=== PATIENT | male | born 1950 | race Caucasian/White ===

== ENCOUNTER → 2018-01-29 18:29 | Outpatient (CLI) | payer MEDICAID, SELFPAY ==
[2018-01-29 19:32] LABS: Amphetamine Urine VISTA NEGATIVE (<1000 ng/mL); Barbiturate Urine VISTA NEGATIVE (< 200 ng/mL); Benzodiazepine Urine VISTA NEGATIVE (< 200 ng/mL); Cocaine Urine VISTA NEGATIVE (< 300 ng/mL); Ecstacy Urine VISTA NEGATIVE (< 500 ng/mL); Methadone Urine VISTA NEGATIVE (< 300 ng/mL); PCP Urine VISTA NEGATIVE (< 25 ng/mL); THC Urine VISTA POSITIVE (< 50 ng/mL); Vista UDS pH Range 5
== END ==
PROVIDERS: Visit Provider Anesthesiology
DX: F11.20 Opioid dependence, uncomplicated (principal)
CPT/HCPCS: 80307

== ENCOUNTER → 2018-06-18 16:05 | Outpatient (CLI) | payer MEDICARE, SELFPAY ==
[2018-06-18 17:47] LABS: Amphetamine Urine VISTA NEGATIVE (<1000 ng/mL); Barbiturate Urine VISTA NEGATIVE (< 200 ng/mL); Benzodiazepine Urine VISTA POSITIVE (< 200 ng/mL); Cocaine Urine VISTA NEGATIVE (< 300 ng/mL); Ecstacy Urine VISTA NEGATIVE (< 500 ng/mL); Methadone Urine VISTA NEGATIVE (< 300 ng/mL); PCP Urine VISTA NEGATIVE (< 25 ng/mL); THC Urine VISTA NEGATIVE (< 50 ng/mL); Vista UDS pH Range 6
== END ==
PROVIDERS: Referring Provider Anesthesiology; Visit Provider Anesthesiology
DX: F11.20 Opioid dependence, uncomplicated (principal)
CPT/HCPCS: 80307

== ENCOUNTER → 2018-09-24 10:16 | Outpatient (CLI) | payer MEDICARE, SELFPAY ==
--- NOTE | 2018-09-24 10:54 | RAD_ITS ---
STUDY: X-RAY - SACROILIAC JOINTS REASON FOR EXAM: Male, 68 years old. History of sacroiliitis. TECHNIQUE: 3 view(s) of the sacroiliac joints were obtained. COMPARISON: None. FINDINGS: The right sacroiliac joint is not visualized and may be fused. There is a springlike structure with wire overlying the right superolateral joint. The left sacral iliac joint is unremarkable. Normal visualized iliac bones. Normal visualized soft tissue structures. RAD/S-I Jts 3 or More Views IMPRESSION: Probable fusion of the right sacroiliac joint. Unremarkable left hip joint. Electronically Signed: Juan Reza MD at 10:43 EST Tel , Service support ,
--- NOTE | 2018-09-24 10:55 | RAD_ITS ---
STUDY: X-RAY - BILATERAL HIPS WITHOUT PELVIS REASON FOR EXAM: Male, 68 years old. Is degenerative sacroiliitis. TECHNIQUE: 2 views of the right hip, and 2 views of the left hip were obtained. COMPARISON: 05/22/2017. FINDINGS: Right Hip: Normal right femoral head, neck, intertrochanteric region and visualized proximal femur. Normal right acetabulum. There is mild articular joint space narrowing of the right hip. There again is a springlike structure overlying the right ilium unchanged since the prior exam. Left Hip: Normal left femoral head, neck, intertrochanteric region and visualized proximal femur. Normal left acetabulum. There is mild articular joint space narrowing of the left hip. Normal bilateral superior and inferior pubic rami , ischial tuberosities and pubic symphysis. There is no demonstrated fracture. RAD/Hips B/L min 2 views w/ Pelvis IMPRESSION: Mild narrowing of the hip joints. Normal x-ray examination of the left hip. Electronically Signed: Juan Reza MD at 10:45 EST Tel , Service support ,
--- OUTSIDE RECORDS SUMMARY | 2018-11-28 18:12 | XMS RPT_ITS ---
:1950 Author Organization [place] Care Team Providers Name Role Phone Perla Kelley Attending Unavailable Allie, Samesandra Referring Unavailable Stefan Bernal Primary Care Unavailable Perla Kelley Attending Unavailable Allie, Samesandra Referring Unavailable Allie, Perla Attending Unavailable Allie, Perla Referring Unavailable Benito Bauer Attending Unavailable Stefan Bernal Referring Unavailable Stefan Bernal Primary Care Unavailable Stefan Bernal Attending Unavailable Stefan Bernal Referring Unavailable Stefan Bernal Primary Care Unavailable Brent Garcia Attending Unavailable Stefan Bernal Referring Unavailable Stefan Bernal Primary Care Unavailable Stefan Bernal Attending Unavailable Stefan Bernal Referring Unavailable Stefan Bernal Primary Care Unavailable Zen Pollock Attending Unavailable Dolores, Stefan Referring Unavailable Dolores, Stefan Primary Care Unavailable Segundo Brantley Attending Unavailable Stefan Bernal Referring Unavailable Dolores, Stefan Primary Care Unavailable Dolores, Stefan Attending Unavailable Dolores, Stefan Referring Unavailable Dolores, Stefan Primary Care Unavailable Segundo Brantley Attending Unavailable Dolores, Stefan Referring Unavailable Darbysamatt, Stefan Primary Care Unavailable Segundo Brantley Attending Unavailable Dolores, Stefan Referring Unavailable Dolores, Stefan Primary Care Unavailable Karon, Dr. Raymond Attending Unavailable Karon, Dr. Raymond Referring Unavailable Moyestefany, Dr. 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 / [employer] System B18.2(ICD-10) Repository 06/19/2018 Admitting Coma scale, best Moyenuddin, Active [facility] motor response, Segundo System extension, EMR / Repository R40.2322(ICD-10) 06/19/2018 Unknown F11.20 - Opioid [facility] Active [place] dependence, Community uncomplicated / Hospital F11.20(ICD-10) Repository 06/18/2018 Admitting Hypothyroidism, Katsaros, Active [facility] unspecified / [facility] System E03.9(ICD-10) Repository 06/18/2018 Admitting Encntr for general Katsaros, Active [facility] adult medical exam [facility] System w/o abnormal Repository findings / Z00.00(ICD-10) 06/18/2018 Admitting Anemia, unspecified Katsaros, Active [facility] / D64.9(ICD-10) [facility] System Repository 06/18/2018 Admitting Encounter for Katsaros, Active [facility] screening for lipoid [facility] disorders / Repository Z13.220(ICD-10) 04/30/2018 Final diagnosis Chronic viral Karon, [facility] (discharge) hepatitis C / Dr. Raymond [facility] B18.2(ICD-10) Repository 03/21/2018 Admitting Essential (primary) Jeromin, Active [facility] Diagnosis hypertension / [facility] I10(ICD-10) Repository 03/21/2018 Admitting Irritable bowel Jeromin, Active [facility] Diagnosis syndrome without [facility] diarrhea / Repository K58.9(ICD-10) 03/21/2018 Admitting Other cervical disc Jeromin, Active [facility] Diagnosis degeneration, unsp [facility] cervical region / Repository M50.30(ICD-10) 03/21/2018 Admitting Gastro-esophageal Jeromin, Active [facility] Diagnosis reflux disease [facility] without esophagitis Repository / K21.9(ICD-10) 03/21/2018 Admitting Personal history of Jeromin, Active [facility] Diagnosis other infectious and [facility] parasitic diseases / Repository Z86.19(ICD-10) 03/21/2018 Admitting Allergy status to Jeromin, Active [facility] Diagnosis oth drug/meds/biol [facility] subst status / Repository Z88.8(ICD-10) 03/21/2018 Admitting Unspecified asthma, Jeromin, Active [facility] Diagnosis uncomplicated / [facility] J45.909(ICD-10) Repository 03/21/2018 Admitting Anxiety disorder, Jeromin, Active [facility] Diagnosis unspecified / [employer] System F41.9(ICD-10) Repository 03/21/2018 Admitting Personal history of Jeromin, Active [facility] Diagnosis nicotine dependence [facility] / Z87.891(ICD-10) Repository 03/21/2018 Admitting Episodic paroxysmal Jeromin, 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, 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 / Repository G44.039(ICD-10) 03/21/2018 Admitting Myalgia / Jeromin, Active [facility] Diagnosis M79.1(ICD-10) [facility] Repository 03/21/2018 Admitting Pain, unspecified / Jeromin, Active [facility] Diagnosis R52(ICD-10) [facility] Repository 03/21/2018 Admitting Hyperlipidemia, Jeromin, Active [facility] Diagnosis unspecified / [facility] E78.5(ICD-10) Repository 03/21/2018 Admitting Disorder of thyroid, Shahriaromin, Active [facility] unspecified / [facility] E07.9(ICD-10) Repository 03/21/2018 Admitting Prsnl history of dis Shahriarommima, [facility] of the bld/bld-form [facility] org/immun mechnsm / Repository Z86.2(ICD-10) 03/21/2018 Admitting Headache / Shahriaromin, Active [facility] R51(ICD-10) [facility] Repository 02/18/2018 Admitting Unspecified viral Katsaros, [facility] hepatitis C without Peter System hepatic coma / Repository B19.20(ICD-10) 02/18/2018 Admitting Chronic pain Brent Garcia [facility] syndrome / System G89.4(ICD-10) Repository 02/18/2018 Admitting Chest pain, Brent Garcia [facility] unspecified / System R07.9(ICD-10) Repository 02/18/2018 Admitting Generalized anxiety Brent Garcia [facility] disorder / System F41.1(ICD-10) Repository 02/18/2018 Admitting Allergic rhinitis, Brent Garcia [facility] unspecified / System J30.9(ICD-10) Repository 02/18/2018 Admitting Cataract extraction Brent Garcia [facility] status, unspecified System eye / Z98.49(ICD-10) Repository 10/13/2017 Admitting Nausea with Benito Bauer [facility] vomiting, System unspecified / Repository R11.2(ICD-10) 10/13/2017 Admitting Calculus of Benito Bauer [facility] Diagnosis gallbladder w/o System cholecystitis w/o Repository obstruction / K80.20(ICD-10) 10/13/2017 Admitting Spondylolisthesis, Benito Bauer [facility] Diagnosis lumbosacral region / System M43.17(ICD-10) Repository 10/13/2017 Admitting Other spondylosis, Benito Bauer [facility] Diagnosis lumbar region / System M47.896(ICD-10) Repository 10/13/2017 Admitting Other hyperlipidemia Benito Bauer [facility] / E78.4(ICD-10) System Repository 10/13/2017 Admitting Other chronic pain / Benito Bauer Active [facility] Diagnosis G89.29(ICD-10) System Repository PROCEDURES PROCEDURES No Procedure Records FoundRESULTS RESULTS S-I JTS 3 OR MORE Observed: 09/24/2018 Status: F Source: [place] VIEWS 10:55 AM [facility] REPOSITORY [facility] Imaging Services [address] [place] [address] S-I Jts 3 or More Views MR#: [id number] Acct: [id number] Name: SARINA DUNN Rep #: [id number] : 1950 M 68 From: Juan Reza MD PCP: Stefan Bernal Status: REG CLI Study: S-I Jts 3 or More Views Date of Exam: 09/24/18 Exam# [id number] Ordering Dr: Perla Kelley MD STUDY: X-RAY - SACROILIAC JOINTS REASON FOR EXAM: Male, 68 years old. History of sacroiliitis. TECHNIQUE: 3 view(s) of the sacroiliac joints were obtained. COMPARISON: None. FINDINGS: The right sacroiliac joint is not visualized and may be fused. There is a springlike structure with wire overlying the right superolateral joint. The left sacral iliac joint is unremarkable. Normal visualized iliac bones. Normal visualized soft tissue structures. RAD/S-I Jts 3 or More Views IMPRESSION: Probable fusion of the right sacroiliac joint. Unremarkable left hip joint. Electronically Signed: Juan Reza MD at 10:43 EST Tel , Service support , CC: Stefan Bernal; Perla Kelley M.D. Creche Attendant: Signed HIPS B/L MIN 2 Observed: 09/24/2018 Status: F Source: [facility] VIEWS W/ PELVIS 10:24 AM [facility] REPOSITORY [facility] Imaging Services [address] [place] [address] Hips B/L min 2 views w/ Pelvis MR#: [id number] Acct: [id number] Name: SARINA DUNN Rep #: [id number] : 1950 M 68 From: Juan Reza MD PCP: Stefan Bernal Status: REG CLI Study: Hips B/L min 2 views w/ Pelvis Date of Exam: 09/24/18 Exam# [id number] Ordering Dr: Perla Kelley MD STUDY: X-RAY - BILATERAL HIPS WITHOUT PELVIS REASON FOR EXAM: Male, 68 years old. Is degenerative sacroiliitis. TECHNIQUE: 2 views of the right hip, and 2 views of the left hip were obtained. COMPARISON: 05/22/2017. FINDINGS: Right Hip: Normal right femoral head, neck, intertrochanteric region and visualized proximal femur. Normal right acetabulum. There is mild articular joint space narrowing of the right hip. There again is a springlike structure overlying the right ilium unchanged since the prior exam. Left Hip: Normal left femoral head, neck, intertrochanteric region and visualized proximal femur. Normal left acetabulum. There is mild articular joint space narrowing of the left hip. Normal bilateral superior and inferior pubic rami , ischial tuberosities and pubic symphysis. There is no demonstrated fracture. RAD/Hips B/L min 2 views w/ Pelvis IMPRESSION: Mild narrowing of the hip joints. Normal x-ray examination of the left hip. Electronically Signed: Juan Reza MD at 10:45 EST Tel , Service support , CC: Peter Katcyn Kelley M.D. Creche Attendant: Signed COMP METABOLIC PANEL Collected: 08/16/2018 Status: F Source: [employer] 11:07 AM SYSTEM REPOSITORY TYPE CODE TESTS RESULT OUT OF RANGE REFERENCE UNITS LAB NA3 135-145 mmol/L Normal Sodium 140 Result Comment: NOTE: New Sodium Reference Range effective 2018 @ 10:00 LAB K3 3.5-5.1 mmol/L Normal Potassium 4.6 LAB CL3 98-107 mmol/L Normal Chloride 103 LAB CO23 22-30 mmol/L Normal Carbon Dioxide 30 LAB ANIN3 NA Anion Gap 6 LAB GLUC3 70-100 mg/dL Normal Glucose 87 LAB BUN3 7-20 mg/dL Normal Urea Nitrogen 16 LAB CRET3 0.52-1.25 mg/dL Normal Creatinine 1.13 LAB GF3BR >60 mL/min eGFR > 60.0 LAB GF3WR >60 mL/min eGFR OTHER > 60.0 Result Comment: Source- MDRD equation with creatinine calibration to IDMS(NKDEP) eGFR not recommended for drug dose adjustment LAB CA3 8.4-10.4 mg/dL Calcium Normal 9.5 LAB ALB3 3.5-5.0 g/dL Albumin, Serum Normal 4.2 LAB TP3 6.3-8.2 g/dL Total Protein Normal 6.9 LAB BILT3 0.2-1.3 mg/dL Normal Bilirubin,Total 0.6 LAB ALKP3 38-126 U/L Alkaline Normal Phosphatase 102 LAB ALT3 13-69 U/L ALT (SGPT) Normal 17 LAB AST3 15-46 U/L AST (SGOT) Normal 15 Performed By: #### CMP3 #### [facility] [address] [place] [address] #### HCVQ #### [facility] [address] [place] [address] HEPATITIS C RNA QUANT Collected: 08/16/2018 Status: F Source: [employer] 11:07 AM SYSTEM REPOSITORY TYPE CODE TESTS RESULT OUT OF RANGE REFERENCE UNITS LAB HCVQ1 <15 [IU]/mL < 15 Abnormal Hepatitis C RNA Quant LAB HCVQ2 <1.18 {Log_IU} < 1.18 Abnormal Hep C RNA Quant (log) LAB HCVQN NA Interpretation Note Result Comment: The linear detection limit for this assay is 15 HCV IU/ml. A result of <15 IU (<1.18 log IU) indicates that HCV was detected, but at a level below the linear cutoff. A result of None Detected means that no HCV RNA was detected. Performed By: #### CMP3 #### [facility] [address] [place] [address] #### HCVQ #### [facility] [address] [place] [address] URINE DRUG SCREEN Collected: 06/18/2018 Status: F Source: [facility]IL[facility] (VISTA) 4:45 PM [facility] REPOSITORY Order Comment: List of Drugs Taken or Suspected? . TYPE CODE TESTS RESULT OUT OF RANGE REFERENCE UNITS LAB L505.0075 TO BE Normal CONFIRMED Result Comment: CONFIRMATORY TESTING FOR ALL POSITIVE URINE DRUG SCREEN RESULTS WILL ONLY BE SENT OUT UPON PHYSICIAN ORDER. VISTA Urine Drug Screen methods provide only preliminary analytical test results. A more specific alternate chemical method must be used in order to obtain a confirmed analytical result. Gas chromatography/mass spectrometery (GC/MS) is the preferred confirmatory method. Clinical consideration and professional judgement should be applied to any drug of abuse test result, particularly when preliminary positive results are used. URINE TCA TESTING MUST BE ORDERED SEPARATELY. USE TEST MNEMONIC: [facility] LAB L505.5005 VISTA UDS PH 6 Normal LAB L505.5015 <1000 ng/mL AMPHETAMINES Normal NEGATIVE LAB L505.5025 < 200 ng/mL BARBITIURATES Normal NEGATIVE LAB L505.5035 < 200 High ng/mL BENZODIAZIPINE POSITIVE LAB L505.5045 < 300 ng/mL COCAINE Normal NEGATIVE LAB L505.5055 < 500 ng/mL ECSTACY Normal NEGATIVE LAB L505.5065 < 300 ng/mL METHADONE Normal NEGATIVE LAB L505.5075 < 300 High ng/mL OPIATES POSITIVE LAB L505.5085 < 25 ng/mL PCP Normal NEGATIVE LAB L505.5095 < 50 ng/mL THC Normal NEGATIVE Performed By: #### L505.5000 #### [facility] [address] [place], [address] MISCELLANEOUS LAB Collected: 06/18/2018 Status: F Source: [place] PROCEDURE 4:45 PM [facility] REPOSITORY Order Comment: Test(s) Ordered: [id number] TYPE CODE TESTS RESULT OUT OF RANGE REFERENCE UNITS LAB L801.1541 Normal [facility] [place] Result Comment: [id number] 6+OXYCODONE-BUND (ng/mL) DRUG RESULT SCREEN CUTOFF ____ Amphetamines,Urine Negative ng/mL 1000 Amphetamine test includes Amphetamine and Methamphetamine. Barbiturates Negative ng/mL 200 Benzodiazepines Negative ng/mL 200 Cannabinoid Positive ng/mL 20 Carboxy THC GC/MS Conf 14 ng/mL 10 Cocaine (Metab) Negative ng/mL 300 Opiates Positive ng/mL 300 Opiates test includes Codeine, Morphine, Hydromorphone, Hydrocodone. Codeine Positive Codeine Confirm >3000 ng/mL 300 Morphine Positive Morphine Confirm >3000 ng/mL 300 Hydromorphone Negative 300 Hydrocodone Negative 300 Oxycodone/Oxymorphone,Urine Negative ng/mL 300 Test includes Oxydodone and Oxymorphone. TESTING PERFORMED AT [facility]. ORIGINAL REPORT ON FILE IN LAB CONTAINS ADDITIONAL TEST SITE INFORMATION. Performed By: #### L801.1541 #### [facility] [place], [address] HEMOGRAM W/ AUTODIFF Collected: 06/18/2018 Status: F [facility] SYSTEM REPOSITORY TYPE CODE TESTS RESULT OUT OF REFERENCE UNITS RANGE LAB IWBC 3.6-10.7 10*3/uL WBC Normal 3.7 LAB RBC 4.40-5.90 10*6/uL Low RBC 3.82 LAB HGB 13.0-18.0 g/dL Low Hemoglobin 11.8 LAB HCT 40.0-52.0 % Low Hematocrit 34.8 LAB MCV 80.0-98.0 fL MCV Normal 91.2 LAB MCH 26.0-34.0 pg MCH Normal 31.0 LAB MCHC 32.0-36.0 % MCHC Normal 34.0 LAB RDW 11.5-14.5 % RDW Normal 12.8 LAB PLT 140-440 10*3/uL Platelet Normal 143 LAB MPV 7.4-10.4 fL MPV Normal 8.1 LAB GRAN% 40.0-80.0 % Granulocytes Normal 61.8 LAB LYMP% 20.0-40.0 % Lymphocytes Normal 28.5 LAB MONO% 2.0-10.0 % Monocytes Normal 9.3 LAB EOS% 1.0-6.0 % Low Eosinophils 0.0 LAB BAS% 0.0-2.0 % Basophils Normal 0.4 LAB ANC 1.8-7.0 10*3/uL Abs Normal Neutrophile Cnt 2.3 LAB ALC 1.0-4.3 10*3/uL Abs Lymph Cnt Normal 1.1 LAB AMC 0.0-0.8 10*3/uL Abs Monocyte Normal Cnt 0.3 LAB AEC 0.0-0.5 10*3/uL Abs Eosin Cnt Normal 0.0 LAB ABC 0.0-0.2 10*3/uL Abs Baso Cnt Normal 0.0 Performed By: #### HEMDF, CMP3, PT #### [facility] [address] [place] [address] #### HBSA, HBSAG, HIV4, HCVQ #### [facility] [address] [address] COMP METABOLIC PANEL Collected: 06/18/2018 Status: F Source: [employer] 1:33 PM SYSTEM REPOSITORY TYPE CODE TESTS RESULT OUT OF RANGE REFERENCE UNITS LAB NA3 137-145 mmol/L Sodium Normal 141 LAB K3 3.5-5.1 mmol/L Normal Potassium 4.4 LAB CL3 98-107 mmol/L Chloride Normal 105 LAB CO23 22-30 mmol/L Carbon Normal Dioxide 30 LAB ANIN3 NA Anion Gap 6 LAB GLUC3 70-100 mg/dL High Glucose 104 LAB BUN3 7-20 mg/dL Urea Normal Nitrogen 9 LAB CRET3 0.52-1.25 mg/dL Normal Creatinine 0.93 LAB GF3BR >60 mL/min eGFR > 60.0 LAB GF3WR >60 mL/min eGFR OTHER > 60.0 Result Comment: Source- MDRD equation with creatinine calibration to IDRI(NKDEP) eGFR not recommended for drug dose adjustment LAB CA3 8.4-10.4 mg/dL Calcium Normal 9.3 LAB ALB3 3.5-5.0 g/dL Albumin, Serum Normal 3.9 LAB TP3 6.3-8.2 g/dL Total Protein Normal 6.4 LAB BILT3 0.2-1.3 mg/dL Normal Bilirubin,Total 0.7 LAB ALKP3 38-126 U/L Alkaline Normal Phosphatase 68 LAB ALT3 13-69 U/L ALT (SGPT) Normal 33 LAB AST3 15-46 U/L AST (SGOT) Normal 29 Performed By: #### HEMDF, CMP3, PT #### [facility] [address] [place] [address] [place] [address] #### HBSA, HBSAG, HIV4, HCVQ #### [facility] [address] [place] [phone] PROTHROMBIN TIME Collected: 06/18/2018 Status: F Source: [employer] 1:33 PM SYSTEM REPOSITORY TYPE CODE TESTS RESULT OUT OF REFERENCE UNITS RANGE LAB PROTM 9.0-12.0 s Prothrombin Normal Time 10.9 Result Comment: . LAB INR 0.9-1.1 NA Normal INR 1.1 Result Comment: Recommended Anticoagulant Therapy: SEE BELOW ----- INR of 2.0 - 3.0 : - Prophylaxis of Venous Thrombosis (high-risk surgery) - Treatment of Venous Thrombosis - Treatment of Pulmonary Embolism (Includes tissue heart valves, Acute Myocardial Infarction to prevent systemic embolism, Valvular Heart Disease, and Atrial Fibrillation) ----- INR of 2.5 - 3.5 : - Mechanical Prosthetic Valves (high risk) - If oral anticoagulant therapy is used to prevent Myocardial Infarction Performed By: #### HEMDF, CMP3, PT #### [facility] [address] [place] [address] [place] [address] #### HBSA, HBSAG, HIV4, HCVQ #### [facility] [address] [place] [id number] HEP B SURFACE AB Collected: 06/18/2018 Status: F Source: [employer] 1:33 PM SYSTEM REPOSITORY TYPE CODE TESTS RESULT OUT OF REFERENCE UNITS RANGE LAB HBSA1 m[IU]/mL Hep B Surface < 8.0 Ab Result Comment: Interpretation: <8.0 Non-Reactive 8.0-11.9 Equivocal >= 12.0 Ab Detected Performed By: #### SUZANNA CMP3, PT #### [facility] [address] [place] [address] #### HBSA, HBSAG, HIV4, HCVQ #### [facility] [address] [place] [address] HEP B SURFACE AG Collected: 06/18/2018 Status: F Source: [employer] 1:[employer] PM SYSTEM REPOSITORY TYPE CODE TESTS RESULT OUT OF RANGE REFERENCE UNITS LAB HBSAG Not-Detected NA Normal Hep B Surface NOT DETECTED Ag Performed By: #### TISH BRISENO3, PT #### [facility] [address] [place] [address]. [place] [address] #### HBSA, HBSAG, HIV4, HCVQ #### [facility] [address] [place] [address] HIV 1,2 AB; P24 Collected: 06/18/2018 Status: F Source: [employer] 1:33 PM SYSTEM REPOSITORY TYPE CODE TESTS RESULT OUT OF REFERENCE UNITS RANGE LAB HIVA Nonreactive NA NONREACTIVE HIV 1,2 Ab; p24 Ag Result Comment: Results obtained using the FDA cleared 4th generation HIV test. This test detects antibodies to HIV1, HIV2, HIV Group O, and the presence of the HIV-1 p24 antigen. A Non-Reactive re- sult indicates the patient is negative for both HIV antibody and HIV p24 antigen. All reactive results will undergo reflex confirmation testing at an additional charge. Performed By: #### SUZANNA, TISH3, PT #### [facility] [address] [place] [address] [place] [address] #### HBSA, HBSAG, HIV4, HCVQ #### [facility] [address] [place] [address] HEPATITIS C RNA QUANT Collected: 06/18/2018 Status: F Source: [employer] 1:33 PM SYSTEM REPOSITORY TYPE CODE TESTS RESULT OUT OF RANGE REFERENCE UNITS LAB HCVQ1 <15 [IU]/mL [address] Abnormal Hepatitis C RNA Quant LAB HCVQ2 <1.18 {Log_IU} 4.89 Abnormal Hep C RNA Quant (log) LAB HCVQN NA Interpretation Note Result Comment: The linear detection limit for this assay is 15 HCV IU/ml. A result of <15 IU (<1.18 log IU) indicates that HCV was detected, but at a level below the linear cutoff. A result of None Detected means that no HCV RNA was detected. Performed By: #### HEMDF, CMP3, PT #### [facility] [address] [place] [address] #### HBSA, HBSAG, HIV4, HCVQ #### [facility] [address] [place] [address] HEP A ABS, TOTAL Collected: 06/18/2018 Status: F Source: [employer] 1:33 PM SYSTEM REPOSITORY TYPE CODE TESTS RESULT OUT OF RANGE REFERENCE UNITS LAB AHAVR Negative NA Unknown Hep A Positive Abs, Total Result Comment: The positive anti-HAV is consistent with recent or remote Hepatitis A infection or antibody response to HAV vaccination. False positive anti-HAV can occur. Performed by [employer], [address] [place] [id number] [email or web address], Mohit Durand MD - Lab. Director Performed By: #### AHAVO #### The performing lab is in the report. HEMOGRAM W/ AUTODIFF Collected: 06/18/2018 Status: F Source: [employer] 1:27 PM SYSTEM REPOSITORY TYPE CODE TESTS RESULT OUT OF REFERENCE UNITS RANGE LAB IWBC 3.6-10.7 10*3/uL WBC Normal 3.7 LAB RBC 4.40-5.90 10*6/uL Low RBC 3.78 LAB HGB 13.0-18.0 g/dL Low Hemoglobin 11.7 LAB HCT 40.0-52.0 % Low Hematocrit 34.5 LAB MCV 80.0-98.0 fL MCV Normal 91.3 LAB MCH 26.0-34.0 pg MCH Normal 31.0 LAB MCHC 32.0-36.0 % MCHC Normal 33.9 LAB RDW 11.5-14.5 % RDW Normal 12.9 LAB PLT 140-440 10*3/uL Platelet Normal 143 LAB MPV 7.4-10.4 fL MPV Normal 7.9 LAB GRAN% 40.0-80.0 % Granulocytes Normal 60.7 LAB LYMP% 20.0-40.0 % Lymphocytes Normal 29.3 LAB MONO% 2.0-10.0 % Monocytes Normal 9.5 LAB EOS% 1.0-6.0 % Low Eosinophils 0.0 LAB BAS% 0.0-2.0 % Basophils Normal 0.5 LAB ANC 1.8-7.0 10*3/uL Abs Normal Neutrophile Cnt 2.3 LAB ALC 1.0-4.3 10*3/uL Abs Lymph Cnt Normal 1.1 LAB AMC 0.0-0.8 10*3/uL Abs Monocyte Normal Cnt 0.4 LAB AEC 0.0-0.5 10*3/uL Abs Eosin Cnt Normal 0.0 LAB ABC 0.0-0.2 10*3/uL Abs Baso Cnt Normal 0.0 Performed By: #### HEMDF, CMP3, LIPD2, FEIBC, TSH5, PSA3S #### [facility] [address] [place] [address] COMP METABOLIC PANEL Collected: 06/18/2018 Status: F Source: [employer] 1:27 PM SYSTEM REPOSITORY TYPE CODE TESTS RESULT OUT OF RANGE REFERENCE UNITS LAB NA3 137-145 mmol/L Sodium Normal 142 LAB K3 3.5-5.1 mmol/L Normal Potassium 4.6 LAB CL3 98-107 mmol/L Chloride Normal 106 LAB CO23 22-30 mmol/L High Carbon Dioxide 31 LAB ANIN3 NA Anion Gap 6 LAB GLUC3 70-100 mg/dL High Glucose 105 LAB BUN3 7-20 mg/dL Urea Normal Nitrogen 9 LAB CRET3 0.52-1.25 mg/dL Normal Creatinine 0.96 LAB GF3BR >60 mL/min eGFR > 60.0 LAB GF3WR >60 mL/min eGFR OTHER > 60.0 Result Comment: Source- MDRD equation with creatinine calibration to IDMS(NKDEP) eGFR not recommended for drug dose adjustment LAB CA3 8.4-10.4 mg/dL Calcium Normal 9.4 LAB ALB3 3.5-5.0 g/dL Albumin, Serum Normal 4.0 LAB TP3 6.3-8.2 g/dL Total Protein Normal 6.5 LAB BILT3 0.2-1.3 mg/dL Normal Bilirubin,Total 0.6 LAB ALKP3 38-126 U/L Alkaline Normal Phosphatase 68 LAB ALT3 13-69 U/L ALT (SGPT) Normal 38 LAB AST3 15-46 U/L AST (SGOT) Normal 29 Performed By: #### HEMDF, CMP3, LIPD2, FEIBC, TSH5, PSA3S #### [facility] [address] [place] [address] LIPID PANEL Collected: 06/18/2018 Status: F Source: [employer] 1:27 PM SYSTEM REPOSITORY TYPE CODE TESTS RESULT OUT OF REFERENCE UNITS RANGE LAB 3CHOL < 200 mg/dL Cholesterol Normal 132 LAB 3TRIG <150 mg/dL Triglyceride Normal 66 LAB HDLC 40-60 mg/dL HDL Normal Cholesterol 47 LAB LDL4 <100 mg/dL Low Density Normal Lipoprotein 72 LAB CHLHD NA Chol/HDL 3 Result Comment: Ref Range: < 3 Low Risk for CHD 3-6 Mod Risk for CHD > 6 High Risk for CHD Performed By: #### HEMDF, CMP3, LIPD2, FEIBC, TSH5, PSA3S #### [facility] [address] [facility] [address] IRON AND TIBC Collected: 06/18/2018 Status: F Source: [employer] 1:27 PM SYSTEM REPOSITORY TYPE CODE TESTS RESULT OUT OF RANGE REFERENCE UNITS LAB IRON3 49-181 ug/dL Iron, Normal Total 71 LAB TIBC3 261-497 ug/dL Total Normal Iron Binding 307 Cap. LAB SAT3 15-50 % Normal Saturation 23 Performed By: #### HEMDF, CMP3, LIPD2, FEIBC, TSH5, PSA3S #### [facility] [address] [facility] [place] [address] THYROID STIM. Collected: 06/18/2018 Status: F Source: [employer] HORMONE 1:27 PM SYSTEM REPOSITORY TYPE CODE TESTS RESULT OUT OF REFERENCE UNITS RANGE LAB TSH5 0.465-4.680 u[IU]/mL Low Thyroid Stim. < 0.015 Hormone Performed By: #### HEMDF, CMP3, LIPD2, FEIBC, TSH5, PSA3S #### [facility] [address] [facility] [place] [address] PROSTATE SPECIFIC AG Collected: 06/18/2018 Status: F Source: [employer] SCREEN 1:27 PM SYSTEM REPOSITORY TYPE CODE TESTS RESULT OUT OF RANGE REFERENCE UNITS LAB 3PSAS < 4.000 ng/mL Normal Prostate 0.218 Specific Ag Screen Result Comment: Testing performed on the [employer] 5600 using an immunometric methodology. Results obtained by different methods should not be used interchangeably. Performed By: #### HEMDF, CMP3, LIPD2, FEIBC, TSH5, PSA3S #### [facility] [address] [place] [address] DRUGS OF ABUSE Collected: 06/18/2018 Status: F Source: [employer] 1:00 AM SYSTEM REPOSITORY TYPE CODE TESTS RESULT OUT OF REFERENCE UNITS RANGE LAB AMP3 NA Amphetamines, Ur Negative LAB BARB3 NA Barbiturates, Ur Negative LAB BENZ3 NA Benzodiazepines, Positive Ur LAB COC3 NA Cocaine, Ur Negative LAB METH3 NA Methadone, Ur Negative LAB OPI3 NA Opiates, Ur Positive LAB OXY3 NA Oxycodone/Oxymorph Negative ine,Ur LAB PCP3 NA Phencyclidine (PCP), Ur Negative Result Comment: The expected value for all of the drugs listed above is Negative. The following drugs or drug groups have been screened for by Immunoassay at the following thresholds: Amphetamine class (1000 ng/mL), Barbiturates (200 ng/mL), Benzodiazepines (200 ng/mL), Cocaine (300 ng/mL), Methadone (300 ng/mL), Opiates (300 ng/mL), Oxycodone (100 ng/mL), and PCP (25 ng/mL). NOTE: These results are for medical treatment only. Analysis performed using non-forensic procedures. POSITIVE results are NOT confirmed by a more specific alternative method unless requested. If confirmation is needed, request confirmation under separate order. Performed By: #### DRGA4 #### [facility] [address] [place] [address] #### ETOHU #### [facility] [address] [place] [address] ETHANOL,URINE Collected: 06/18/2018 Status: F Source: [employer] 1:00 AM SYSTEM REPOSITORY TYPE CODE TESTS RESULT OUT OF RANGE REFERENCE UNITS LAB ETOHU NA Normal NONE DETECTED Ethanol,Uri ne Result Comment: None Available Reporting Limit 0.01g/dL NOTE:These results are for medical treatment only. Analysis performed using non-forensic procedures. Performed By: #### DRGA4 #### [facility] [address] [place] [address] #### ETOHU #### [facility] [address] [place] [address] PROCEDURE (GASTROENTEROLOGY) Observed: 04/30/2018 Status: UNK Source: [employer] 1:12 PM HOSPITALS REPOSITORY Procedure 0945) Patient referred by Dr. Segundo Brantley for open-access Fibroscan study for diagnosis of chronic hepatitis C w/o coma. Patient identified x 2 and verified the following: age 18 or older - yes fasting > 3 hours - yes if female, not - n/a no implanted electronic devices (i.e. pacemaker, ICD) - yes Fibroscan study completed using M probe and 12 consecutive valid measurements obtained. Patient tolerated procedure well. Results: Median = 8.9 kPa IQR = 0.4 IQR/med = 4 % CAP = 212 dB/m Patient advised that Dr. Anders will read the study and send a report to the referring provider. Perri Cabrera RN- Diagnoses/Problems Chronic hepatitis C without hepatic coma (070.54) (B18.2) Attending Note Attestation: I reviewed the attendee's documentation and I agree with the attendee's medical decision making and plans as documented in the attendee's note with the exception/addition of the following: Comments/Additional Findings: HEPATOLOGY ATTENDING NOTE I personally reviewed and interpreted the FibroSCAN test. It revealed a median liver stiffness of 8.9 kPa with an IQR of 4% and CAP 212. This is consistent with stage 2 disease. We will send the results to the PCP and the referring MD. CECIL Anders. Signatures Electronically signed by : Chao Anders MD; Apr 30 2018 1:12PM EST (Author) URINALYSIS,MACRO Collected: 03/21/2018 Status: F Source: [employer] 7:43 PM SYSTEM REPOSITORY TYPE CODE TESTS RESULT OUT OF REFERENCE UNITS RANGE LAB APPUR Clear NA Appearance CLEAR LAB COLUR Lt. Yellow NA Color YELLOW LAB USG 1.005-1.030 NA Specific Normal Robinson,Urine 1.025 LAB UPH 5.0-8.0 NA pH,Urine Normal 6.0 LAB ULUK Negative NA Leukocytes NEGATIVE LAB UNIT Negative NA Nitrites NEGATIVE LAB UPRO Negative mg/dL Total Protein,Urine NEGATIVE LAB UGLU Negative mg/dL Glucose,Urine NEGATIVE LAB UKET Negative mg/dL Ketone,Urine 1 + LAB UURO 0-1 mg/dL Urobilinogen 0.2 LAB UBIL Negative NA Bilirubin,Ur NEGATIVE LAB UBLD Negative {RBC}/uL Occult Blood,Ur NEGATIVE Performed By: #### UAMAC #### [facility] [address] [place] [address] CT HEAD OR BRAIN W/O Observed: 03/21/2018 Status: F Source: [employer] CONTRAST 5:09 PM SYSTEM REPOSITORY Patient Name: SARINA DUNN CT Exam Date/Time 03/21/2018 16:55:[address] Head or Brain w/o Contrast Ordering Physician MD POLLOCK GERALD Accession Number [id number] CPT4 Codes 28073 () Reason For Exam headache Report CLINICAL INFORMATION: Headaches. Nausea and vomiting. 3 mm axial cuts through the head are obtained without IV contrast. The examination is compared to a previous study dated 05/17/2017. FINDINGS: The ventricles are within normal limits in respect to their size and configuration. There is no evidence of mass or mass-effect. There are no abnormal intra- or extra-axial fluid collections. No hemorrhage is identified. There is no CT evidence of an acute infarct. Bone windows demonstrate no evidence of fracture. A retention cyst or polyp is redemonstrated in the left frontal sinus. This is unchanged. The mastoid air cells are clear.. IMPRESSION: 1. No CT evidence of an acute intracranial process. Report Dictated on Final Dictating Physician: MD IYER JEFFREY Signed Date and Time: 03/21/2018 5:10 pm Signed by: MD IYER JEFFREY Transcribed Date and Time: 03/21/2018 5:11 HEMOGRAM W/ AUTODIFF Collected: 03/21/2018 Status: F Source: [employer] 4:18 PM SYSTEM REPOSITORY TYPE CODE TESTS RESULT OUT OF REFERENCE UNITS RANGE LAB IWBC 3.6-10.7 10*3/uL WBC Normal 5.9 LAB RBC 4.40-5.90 10*6/uL Low RBC 3.99 LAB HGB 13.0-18.0 g/dL Low Hemoglobin 12.6 LAB HCT 40.0-52.0 % Low Hematocrit 36.2 LAB MCV 80.0-98.0 fL MCV Normal 90.6 LAB MCH 26.0-34.0 pg MCH Normal 31.4 LAB MCHC 32.0-36.0 % MCHC Normal 34.7 LAB RDW 11.5-14.5 % RDW Normal 12.2 LAB PLT 140-440 10*3/uL Platelet Normal 172 LAB MPV 7.4-10.4 fL MPV Normal 8.5 LAB GRAN% 40.0-80.0 % Granulocytes High 81.3 LAB LYMP% 20.0-40.0 % Low Lymphocytes 12.5 LAB MONO% 2.0-10.0 % Monocytes Normal 4.3 LAB EOS% 1.0-6.0 % Low Eosinophils 0.1 LAB BAS% 0.0-2.0 % Basophils Normal 1.8 LAB ANC 1.8-7.0 10*3/uL Abs Normal Neutrophile Cnt 4.8 LAB ALC 1.0-4.3 10*3/uL Low Abs Lymph Cnt 0.7 LAB AMC 0.0-0.8 10*3/uL Abs Monocyte Normal Cnt 0.3 LAB AEC 0.0-0.5 10*3/uL Abs Eosin Cnt Normal 0.0 LAB ABC 0.0-0.2 10*3/uL Abs Baso Cnt Normal 0.1 Performed By: #### HEMDF, CMP3, ETOH4, MG3 #### [facility] [address] [place] [address] COMP METABOLIC PANEL Collected: 03/21/2018 Status: F Source: [employer] 4:18 PM SYSTEM REPOSITORY TYPE CODE TESTS RESULT OUT OF RANGE REFERENCE UNITS LAB NA3 137-145 mmol/L Sodium Normal 139 LAB K3 3.5-5.1 mmol/L Normal Potassium 4.2 LAB CL3 98-107 mmol/L Chloride Normal 105 LAB CO23 22-30 mmol/L Low Carbon Dioxide 21 LAB ANIN3 NA Anion Gap 13 LAB GLUC3 70-100 mg/dL High Glucose 103 LAB BUN3 7-20 mg/dL Urea Normal Nitrogen 15 LAB CRET3 0.52-1.25 mg/dL Normal Creatinine 0.64 LAB GF3BR >60 mL/min eGFR > 60.0 LAB GF3WR >60 mL/min eGFR OTHER > 60.0 Result Comment: Source- MDRD equation with creatinine calibration to IDMS(NKDEP) eGFR not recommended for drug dose adjustment LAB CA3 8.4-10.4 mg/dL Calcium Normal 9.2 LAB ALB3 3.5-5.0 g/dL Albumin, Serum Normal 4.2 LAB TP3 6.3-8.2 g/dL Total Protein Normal 7.5 LAB BILT3 0.2-1.3 mg/dL Normal Bilirubin,Total 0.9 LAB ALKP3 38-126 U/L Alkaline Normal Phosphatase 77 LAB ALT3 13-69 U/L ALT (SGPT) Normal 45 LAB AST3 15-46 U/L AST (SGOT) Normal 44 Performed By: #### HEMDF, CMP3, ETOH4, MG3 #### [facility] [address] [place] [address] ETHANOL SERUM/PLASMA Collected: 03/21/2018 Status: F Source: [employer] 4:18 PM SYSTEM REPOSITORY TYPE CODE TESTS RESULT OUT OF RANGE REFERENCE UNITS LAB ETOH3 0.000-0.010 g/dL Normal < 0.010 Ethanol-Seru m/Plasma Result Comment: NOTE: This result is for medical treatment only. Analysis performed using non-forensic procedures. Performed By: #### HEMDF, CMP3, ETOH4, MG3 #### [facility] [address] [place] [address] MAGNESIUM Collected: 03/21/2018 Status: F Source: [employer] 4:18 PM SYSTEM REPOSITORY TYPE CODE TESTS RESULT OUT OF RANGE REFERENCE UNITS LAB MG3 1.6-2.3 mg/dL Normal Magnesium 1.9 Performed By: #### HEMDF, CMP3, ETOH4, MG3 #### [facility] [address] [place] [address] HEPATITIS C GENOTYPE Collected: 02/18/2018 Status: F Source: [employer] 11:50 AM SYSTEM REPOSITORY Order Comment: ORDER WAS CANCELLED 02/18/18 17:56, OUTSIDE TUBE HAS EDTA/SERUM ?. TYPE CODE TESTS RESULT OUT OF REFERENCE UNITS RANGE LAB HPCGR NA Hepatitis C 1a or 1b Genotype Result Comment: Cannot be further subtyped into Type 1a or Type 1b due to high conservation of the 5' untranslated region of the HCV genome. In addition, Type 6 virus may be misclassified as Type 1 in some cases. The Hepatitis C Virus High-Resolution Genotype by Sequencing test ([facility] test code [id number]) provides a higher level of subtype resolution. INTERPRETIVE INFORMATION: Hepatitis C Genotyping Hepatitis C Viral RNA is tested using reverse mixed crop farmer polymerase chain reaction (RT-PCR) to amplify a specific portion of the 5' untranslated region (5' UTR) of the viral genome. The amplified nucleic acid is sequenced bi-directionally using dye-terminator chemistry ([employer]). Sequencing data is compared to a database of characterized sequences. Isolates of hepatitis C virus are grouped into six major genotypes (1-6). These genotypes are subtyped according to sequence characteristics. Due to high conservation of the 5' un-translated region of the HCV genome, this test has limitations in differentiating subtype 1a from 1b. Therefore, these subtypes will be reported as 1a or 1b. In rare instances, Type 6 virus may be misclassified as Type 1. Test developed and characteristics determined by [employer]. See Compliance Statement B: [facility]/ Performed by [facility], [address] [place] [id number] [email or web address], Mohit Durand MD - Lab. Director Performed By: #### HPCGO #### The performing lab is in the report. CR CHEST PORTABLE Observed: 02/18/2018 Status: F Source: [employer] 10:33 AM SYSTEM REPOSITORY Patient Name: SARINA DUNN Diagnostic Radiology Exam Date/Time 02/18/2018 10:30:38 EDT Exam CR Chest Portable Ordering Physician BRENT GARCIA Accession Number [id number] CPT4 Codes 62203 () Reason For Exam chest pain Report CHEST (Frontal View) History: Chest pain Comparison: 10/13/2017 Findings: Frontal chest view shows interstitial prominence of both lungs without acute infiltrate or congestion. The heart is normal in size. There is no mediastinal widening or pleural effusion. The right diaphragm is mildly elevated. There are multiple tiny metallic foreign bodies projected at the left upper chest/scapula, not significantly changed from last exam. IMPRESSION: Metallic foreign bodies. Chronic changes. No acute pulmonary process. Report Dictated on Final Dictating Physician: MD ALCANTARA AHMAD Signed Date and Time: 02/18/2018 10:35 am Signed by: MD ALCANTARA AHMAD Transcribed Date and Time: 02/18/2018 10:36 HEMOGRAM W/ AUTODIFF Collected: 02/18/2018 Status: F Source: [employer] 9:34 AM SYSTEM REPOSITORY TYPE CODE TESTS RESULT OUT OF REFERENCE UNITS RANGE LAB IWBC 3.6-10.7 10*3/uL WBC Normal 6.1 LAB RBC 4.40-5.90 10*6/uL Low RBC 4.13 LAB HGB 13.0-18.0 g/dL Low Hemoglobin 12.8 LAB HCT 40.0-52.0 % Low Hematocrit 37.7 LAB MCV 80.0-98.0 fL MCV Normal 91.3 LAB MCH 26.0-34.0 pg MCH Normal 31.1 LAB MCHC 32.0-36.0 % MCHC Normal 34.0 LAB RDW 11.5-14.5 % RDW Normal 13.4 LAB PLT 140-440 10*3/uL Platelet Normal 159 LAB MPV 7.4-10.4 fL MPV Normal 8.0 LAB GRAN% 40.0-80.0 % Granulocytes Normal 66.2 LAB LYMP% 20.0-40.0 % Lymphocytes Normal 22.2 LAB MONO% 2.0-10.0 % Monocytes Normal 9.1 LAB EOS% 1.0-6.0 % Low Eosinophils 0.0 LAB BAS% 0.0-2.0 % Basophils High 2.5 LAB ANC 1.8-7.0 10*3/uL Abs Normal Neutrophile Cnt 4.1 LAB ALC 1.0-4.3 10*3/uL Abs Lymph Cnt Normal 1.4 LAB AMC 0.0-0.8 10*3/uL Abs Monocyte Normal Cnt 0.6 LAB AEC 0.0-0.5 10*3/uL Abs Eosin Cnt Normal 0.0 LAB ABC 0.0-0.2 10*3/uL Abs Baso Cnt Normal 0.2 Performed By: #### HEMDF, CMP3, LIPA3, TROPN #### [facility] [address] [place] [address] #### NH33 #### [facility] [address] [place] [address] COMP METABOLIC PANEL Collected: 02/18/2018 Status: F Source: [employer] 9:34 AM SYSTEM REPOSITORY TYPE CODE TESTS RESULT OUT OF RANGE REFERENCE UNITS LAB NA3 137-145 mmol/L Low Sodium 134 LAB K3 3.5-5.1 mmol/L Normal Potassium 3.7 LAB CL3 98-107 mmol/L Chloride Normal 101 LAB CO23 22-30 mmol/L Carbon Normal Dioxide 27 LAB ANIN3 NA Anion Gap 6 LAB GLUC3 70-100 mg/dL High Glucose 107 LAB BUN3 7-20 mg/dL Urea Normal Nitrogen 20 LAB CRET3 0.52-1.25 mg/dL Normal Creatinine 1.03 LAB GF3BR >60 mL/min eGFR > 60.0 LAB GF3WR >60 mL/min eGFR OTHER > 60.0 Result Comment: Source- MDRD equation with creatinine calibration to IDMS(NKDEP) eGFR not recommended for drug dose adjustment LAB CA3 8.4-10.2 mg/dL Calcium Normal 9.3 LAB ALB3 3.5-5.0 g/dL Albumin, Serum Normal 4.3 LAB TP3 6.3-8.2 g/dL Total Protein Normal 7.4 LAB BILT3 0.2-1.3 mg/dL Normal Bilirubin,Total 0.8 LAB ALKP3 38-126 U/L Alkaline Normal Phosphatase 73 LAB ALT3 13-69 U/L High ALT (SGPT) 75 LAB AST3 15-46 U/L High AST (SGOT) 49 Performed By: #### HEMDF, CMP3, LIPA3, TROPN #### [facility] [address] [place] [address] #### NH33 #### [facility] [address] [place] [address] LIPASE Collected: 02/18/2018 Status: F Source: [employer] 9:34 AM SYSTEM REPOSITORY TYPE CODE TESTS RESULT OUT OF RANGE REFERENCE UNITS LAB LIPA3 23-300 [IU]/L Normal Lipase 83 Performed By: #### HEMDF, CMP3, LIPA3, TROPN #### [facility] [address] [place] [address] #### NH33 #### [facility] [address] [place] [address] TROPONIN I Collected: 02/18/2018 Status: F Source: [employer] 9:34 AM SYSTEM REPOSITORY TYPE CODE TESTS RESULT OUT OF RANGE REFERENCE UNITS LAB TROP4 0.000-0.034 ng/mL Normal Troponin I < 0.012 Result Comment: 0.046 - 0.400 = Indeterminate > 0.400 = Consider Myocardial Injury Performed By: #### HEMDF, CMP3, LIPA3, TROPN #### [facility] [address] [place] [address] #### NH33 #### [facility] [address] [place] [address] AMMONIA Collected: 02/18/2018 Status: F Source: [employer] 9:34 AM SYSTEM REPOSITORY TYPE CODE TESTS RESULT OUT OF RANGE REFERENCE UNITS LAB NH33 9-30 umol/L Normal Ammonia < 9 Performed By: #### HEMDF, CMP3, LIPA3, TROPN #### [facility] [address] [place] [address] #### NH33 #### [facility] [address] [place] [address] URINE DRUG SCREEN Collected: 01/29/2018 Status: F Source: [place] (VISTA) 6:00 PM [facility] REPOSITORY Order Comment: List of Drugs Taken or Suspected? . TYPE CODE TESTS RESULT OUT OF RANGE REFERENCE UNITS LAB L505.0075 TO BE Normal CONFIRMED Result Comment: CONFIRMATORY TESTING FOR ALL POSITIVE URINE DRUG SCREEN RESULTS WILL ONLY BE SENT OUT UPON PHYSICIAN ORDER. [employer] Urine Drug Screen methods provide only preliminary analytical test results. A more specific alternate chemical method must be used in order to obtain a confirmed analytical result. Gas chromatography/mass spectrometery (GC/MS) is the preferred confirmatory method. Clinical consideration and professional judgement should be applied to any drug of abuse test result, particularly when preliminary positive results are used. URINE TCA TESTING MUST BE ORDERED SEPARATELY. USE TEST MNEMONIC: [facility] LAB L505.5005 VISTA UDS PH 5 Normal LAB L505.5015 <1000 ng/mL AMPHETAMINES Normal NEGATIVE LAB L505.5025 < 200 ng/mL BARBITIURATES Normal NEGATIVE LAB L505.5035 < 200 ng/mL BENZODIAZIPINE Normal NEGATIVE LAB L505.5045 < 300 ng/mL COCAINE Normal NEGATIVE LAB L505.5055 < 500 ng/mL ECSTACY Normal NEGATIVE LAB L505.5065 < 300 ng/mL METHADONE Normal NEGATIVE LAB L505.5075 < 300 High ng/mL OPIATES POSITIVE LAB L505.5085 < 25 ng/mL PCP Normal NEGATIVE LAB L505.5095 < 50 High ng/mL THC POSITIVE Performed By: #### L505.5000 #### [facility] [address] [place], [address] MISCELLANEOUS LAB Collected: 01/29/2018 Status: F Source: [place] PROCEDURE 6:00 PM [facility] REPOSITORY Order Comment: Test(s) Ordered: [id number] drug screen TYPE CODE TESTS RESULT OUT OF RANGE REFERENCE UNITS LAB L801.1541 Normal [facility] [place] Result Comment: [id number] 6+OXYCODONE-BUND (ng/mL) DRUG RESULT SCREEN CUTOFF ____ Amphetamines,Urine Negative ng/mL 1000 Amphetamine test includes Amphetamine and Methamphetamine. Barbiturates Negative ng/mL 200 Benzodiazepines Negative ng/mL 200 Cannabinoid Negative ng/mL 20 Cocaine (Metab) Negative ng/mL 300 Opiates Positive ng/mL 300 Opiates test includes Codeine, Morphine, Hydromorphone, Hydrocodone. Please Note: Confirmation performed by Mass Spectrometry Codeine Positive Codeine Confirm >3000 ng/mL 300 Morphine Positive Morphine Confirm >3000 ng/mL 300 Hydromorphone Positive Hydromorphone Confirm 1001 ng/mL 300 Hydrocodone Positive Hydrocodone Confirm >300 ng/mL 300 Oxycodone/Oxymorphone,Urine Negative ng/mL 300 Test includes Oxydodone and Oxymorphone. TESTING PERFORMED AT [facility]. ORIGINAL REPORT ON FILE IN LAB CONTAINS ADDITIONAL TEST SITE INFORMATION. Performed By: #### L801.1541 #### [facility] [place], [address] AFP TUMOR MARKER Collected: 01/26/2018 Status: F Source: [employer] 2:04 PM SYSTEM REPOSITORY TYPE CODE TESTS RESULT OUT OF REFERENCE UNITS RANGE LAB AFPT 0-9 ng/mL AFP Tumor 2 Marker Result Comment: INTERPRETIVE INFORMATION: Alpha Fetoprotein Tumor Marker The [employer] [place] Access DxI AFP method is used. Results obtained with different assay methods or kits cannot be used interchangeably. AFP is a valuable aid in the management of nonseminomatous testicular cancer patients when used in conjunction with information available from the clinical evaluation and other diagnostic procedures. Increased AFP concentrations have also been observed in ataxia telangiectasia, hereditary tyrosinemia, primary hepatocellular carcinoma, teratocarcinoma, gastrointestinal tract cancers with and without liver metastases, and in benign hepatic conditions such as acute viral hepatitis, chronic active hepatitis, and cirrhosis. The result cannot be interpreted as absolute evidence of the presence or absence of malignant disease. The result is not interpretable as a tumor marker in females. Access complete set of age- and/or gender-specific reference intervals for this test in the [facility] Test Directory ([facility]). Performed by [facility], [address] [place] [id number] www.[email or web address], Mohit Durand MD - Lab. Director Performed By: #### HEMDF, FEIBC, TSH4, CMP3, B12, FOLT3 #### [facility] [address] [place] [address] #### CEA2 #### [facility] [address] [place] [address] #### HCVQ #### [facility] [address] [place] [address] #### AFTM #### The performing lab is in the report. HEMOGRAM W/ AUTODIFF Collected: 01/26/2018 Status: F Source: [employer] 2:03 PM SYSTEM REPOSITORY TYPE CODE TESTS RESULT OUT OF REFERENCE UNITS RANGE LAB IWBC 3.6-10.7 10*3/uL WBC Normal 7.9 LAB RBC 4.40-5.90 10*6/uL Low RBC 4.02 LAB HGB 13.0-18.0 g/dL Low Hemoglobin 12.3 LAB HCT 40.0-52.0 % Low Hematocrit 36.9 LAB MCV 80.0-98.0 fL MCV Normal 91.9 LAB MCH 26.0-34.0 pg MCH Normal 30.7 LAB MCHC 32.0-36.0 % MCHC Normal 33.3 LAB RDW 11.5-14.5 % RDW Normal 13.3 LAB PLT 140-440 10*3/uL Platelet Normal 159 LAB MPV 7.4-10.4 fL MPV Normal 8.1 LAB GRAN% 40.0-80.0 % Granulocytes Normal 77.5 LAB LYMP% 20.0-40.0 % Low Lymphocytes 15.2 LAB MONO% 2.0-10.0 % Monocytes Normal 6.3 LAB EOS% 1.0-6.0 % Low Eosinophils 0.0 LAB BAS% 0.0-2.0 % Basophils Normal 1.0 LAB ANC 1.8-7.0 10*3/uL Abs Normal Neutrophile Cnt 6.1 LAB ALC 1.0-4.3 10*3/uL Abs Lymph Cnt Normal 1.2 LAB AMC 0.0-0.8 10*3/uL Abs Monocyte Normal Cnt 0.5 LAB AEC 0.0-0.5 10*3/uL Abs Eosin Cnt Normal 0.0 LAB ABC 0.0-0.2 10*3/uL Abs Baso Cnt Normal 0.1 Performed By: #### HEMDF, FEIBC, TSH4, CMP3, B12, FOLT3 #### [facility] [address] [place] [address] #### CEA2 #### [facility] [address] [place] [address] #### HCVQ #### [facility] [address] [place] [address] #### AFTM #### The performing lab is in the report. IRON AND TIBC Collected: 01/26/2018 Status: F Source: [employer] 2:03 PM SYSTEM REPOSITORY TYPE CODE TESTS RESULT OUT OF RANGE REFERENCE UNITS LAB IRON3 65-175 ug/dL Low Iron, Total 59 LAB TIBC3 250-450 ug/dL Total Normal Iron Binding 325 Cap. LAB SAT3 15-50 % Normal Saturation 18 Performed By: #### HEMDF, FEIBC, TSH4, CMP3, B12, FOLT3 #### [facility] [address] [place] [address] #### CEA2 #### [address] [address] #### HCVQ #### [address] [address] #### AFTM #### The performing lab is in the report. THYROID STIM. Collected: 01/26/2018 Status: F Source: [employer] HORMONE 2:03 PM SYSTEM REPOSITORY TYPE CODE TESTS RESULT OUT OF RANGE REFERENCE UNITS LAB TSH4 0.358-3.740 uU/mL Normal Thyroid Stim. 0.555 Hormone Performed By: #### HEMDF, FEIBC, TSH4, CMP3, B12, FOLT3 #### [facility] [employer] [address] [address] #### CEA2 #### [facility] [address] [address] #### HCVQ #### [facility] [address] [address] #### AFTM #### The performing lab is in the report. COMP METABOLIC PANEL Collected: 01/26/2018 Status: F Source: [employer] 2:03 PM SYSTEM REPOSITORY TYPE CODE TESTS RESULT OUT OF RANGE REFERENCE UNITS LAB NA3 135-145 mmol/L Sodium Normal 140 LAB K3 3.5-5.1 mmol/L Normal Potassium 4.4 LAB CL3 98-109 mmol/L Chloride Normal 104 LAB CO23 21-32 mmol/L Carbon Normal Dioxide 28 LAB ANIN3 NA Anion Gap 8 LAB GLUC3 70-100 mg/dL High Glucose 109 LAB BUN3 7-25 mg/dL Urea Normal Nitrogen 18 LAB CRET3 0.55-1.40 mg/dL Normal Creatinine 0.94 LAB GF3BR >60 mL/min eGFR > 60.0 LAB GF3WR >60 mL/min eGFR OTHER > 60.0 Result Comment: Source- MDRD equation with creatinine calibration to IDMS(NKDEP) eGFR not recommended for drug dose adjustment LAB CA3 8.2-10.1 mg/dL Calcium Normal 8.4 LAB ALB3 3.4-5.0 g/dL Albumin, Serum Normal 3.7 LAB TP3 6.4-8.2 g/dL Total Protein Normal 6.8 LAB BILT3 0.2-1.0 mg/dL Normal Bilirubin,Total 0.5 LAB ALKP3 45-117 U/L Alkaline Normal Phosphatase 106 LAB ALT3 12-78 U/L ALT (SGPT) Normal 37 LAB AST3 15-37 U/L AST (SGOT) Normal 27 Performed By: #### HEMDF, FEIBC, TSH4, CMP3, B12, FOLT3 #### [facility] [address] [address] #### CEA2 #### [facility] [address] [address] #### HCVQ #### [facility] [address] [address] #### AFTM #### The performing lab is in the report. VITAMIN B12 Collected: 01/26/2018 Status: F Source: [employer] 2:03 PM SYSTEM REPOSITORY TYPE CODE TESTS RESULT OUT OF RANGE REFERENCE UNITS LAB B12 193-986 pg/mL Normal Vitamin B12 387 Performed By: #### HEMDF, FEIBC, TSH4, CMP3, B12, FOLT3 #### [facility] [address] [address] #### CEA2 #### [facility] [address] [address] #### HCVQ #### [facility] [address] [address] #### AFTM #### The performing lab is in the report. FOLATE Collected: 01/26/2018 Status: F Source: [employer] 2:03 PM SYSTEM REPOSITORY TYPE CODE TESTS RESULT OUT OF RANGE REFERENCE UNITS LAB 3FOLT 3.1-17.5 ng/mL Normal Folate 14.2 Performed By: #### HEMDF, FEIBC, TSH4, CMP3, B12, FOLT3 #### [facility] [address] [place] [address] #### CEA2 #### [address] [place] [address] #### HCVQ #### [address] [address] #### AFTM #### The performing lab is in the report. CARCINOEMBRYONIC AG Collected: 01/26/2018 Status: F Source: [facility] [employer] 2:03 PM SYSTEM REPOSITORY TYPE CODE TESTS RESULT OUT OF REFERENCE UNITS RANGE LAB 2CEA 0.0-3.0 ng/mL Carcinoembryonic Ag. Normal 1.0 Performed By: #### HEMDF, FEIBC, TSH4, CMP3, B12, FOLT3 #### [facility] [address] #### CEA2 #### [address] [place] [address] #### HCVQ #### [address] [address] #### AFTM #### The performing lab is in the report. HEPATITIS C RNA QUANT Collected: 01/26/2018 Status: F Source: [facility] [employer] 2:00 PM SYSTEM REPOSITORY TYPE CODE TESTS RESULT OUT OF RANGE REFERENCE UNITS LAB HCVQ1 <15 [IU]/mL [address] Abnormal Hepatitis C RNA Quant LAB HCVQ2 <1.18 {Log_IU} 4.90 Abnormal Hep C RNA Quant (log) LAB HCVQN NA Interpretation Note Result Comment: The linear detection limit for this assay is 15 HCV IU/ml. A result of <15 IU (<1.18 log IU) indicates that HCV was detected, but at a level below the linear cutoff. A result of None Detected means that no HCV RNA was detected. Performed By: #### HEMDF, FEIBC, TSH4, CMP3, B12, FOLT3 #### [facility] [place] [address] #### CEA2 #### [address] [place] [address] #### HCVQ #### [facility] [address] [place] [address] #### AFTM #### The performing lab is in the report. CT ABDOMEN/PELVIS W/O Observed: 10/14/2017 Status: F Source: [employer] CONTRAST 1:56 AM SYSTEM REPOSITORY Patient Name: SARINA DUNN CT Exam Date/Time 10/14/2017 00:10:[address] Abdomen/Pelvis (No PO, No IV) Ordering Physician MD MARK, BENITO Accession Number [id number] CPT4 Codes 24565 (CT Abdomen/Pelvis (No PO, No IV)) Reason For Exam n/v/mild abd cramps hx [facility] Report CT ABDOMEN AND PELVIS WITHOUT IV CONTRAST CLINICAL INDICATION: Nausea, vomiting and abdominal pain. History of hepatitis C. TECHNIQUE: Multidetector axial CT images through the abdomen and pelvis were obtained without IV contrast. No oral contrast was administered. Images were reconstructed in sagittal and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
== END ==
PROVIDERS: Family Provider Internal Medicine; PCP Internal Medicine; Referring Provider Anesthesiology; Visit Provider Anesthesiology
DX: M25.50 Pain in unspecified joint (principal); M46.1 Sacroiliitis, not elsewhere classified
CPT/HCPCS: 72202; 73521

== ENCOUNTER → 2019-03-04 13:25 | Outpatient (CLI) | payer MEDICARE, SELFPAY ==
[2019-03-04 15:02] LABS: Amphetamine Urine VISTA NEGATIVE (<1000 ng/mL); Barbiturate Urine VISTA NEGATIVE (< 200 ng/mL); Benzodiazepine Urine VISTA POSITIVE (< 200 ng/mL); Cocaine Urine VISTA NEGATIVE (< 300 ng/mL); Ecstacy Urine VISTA NEGATIVE (< 500 ng/mL); Methadone Urine VISTA NEGATIVE (< 300 ng/mL); PCP Urine VISTA NEGATIVE (< 25 ng/mL); THC Urine VISTA POSITIVE (< 50 ng/mL); Vista UDS pH Range 5
== END ==
PROVIDERS: Family Provider Internal Medicine; PCP Internal Medicine; Referring Provider Anesthesiology; Visit Provider Anesthesiology
DX: F11.20 Opioid dependence, uncomplicated (principal)
CPT/HCPCS: 80307

== ENCOUNTER → 2019-08-12 12:18 | Outpatient (CLI) | payer MEDICARE, SELFPAY ==
--- NOTE | 2019-08-12 12:21 | VDLE_ITS ---
Reason For Study: RLE swelling RIGHT LEFT GSV is normal. CFV is compressible, spontaneous, phasic, CFV is compressible, spontaneous, phasic, competent, and demonstrates normal competent and demonstrates normal augmentation. augmentation. FV is compressible, spontaneous, phasic, competent and demonstrates normal augmentation. T/P Trunk is compressible. PTV is compressible. RT PerV is compressible. POP V is compressible, spontaneous, phasic, INCOMPETENT and demonstrates reflux greater than 1.0 second. Procedure Exam performed in department. The exam was diagnostic. A preliminary report was called and/or faxed to DR. Kelley @ [phone] & [phone] @ 12:45 pm. Interpretation Summary Deep veins of the right lower extremity are patent and compressible segmentally. There is no evidence of right lower extremity deep vein thrombosis. Valvular incompetence is noted in the right popliteal vein. The right common femoral vein and femoral vein are competent. The right great saphenous vein appears patent and compressible segmentally. Ordering Physician: Perla Kelley Referring Physician: Stefan Bernal Performed By: Shilpi Santiago, JASON, RVT
== END ==
PROVIDERS: Family Provider Internal Medicine; PCP Internal Medicine; Referring Provider Anesthesiology; Visit Provider Anesthesiology
DX: R22.41 Localized swelling, mass and lump, right lower limb (principal)
CPT/HCPCS: 93971

== ENCOUNTER → 2019-09-02 16:43 | Outpatient (CLI) | payer MEDICARE, SELFPAY ==
[2019-09-02 18:18] LABS: Amphetamine Urine VISTA NEGATIVE (<1000 ng/mL); Barbiturate Urine VISTA NEGATIVE (< 200 ng/mL); Benzodiazepine Urine VISTA NEGATIVE (< 200 ng/mL); Cocaine Urine VISTA NEGATIVE (< 300 ng/mL); Ecstacy Urine VISTA NEGATIVE (< 500 ng/mL); Methadone Urine VISTA NEGATIVE (< 300 ng/mL); PCP Urine VISTA NEGATIVE (< 25 ng/mL); THC Urine VISTA POSITIVE (< 50 ng/mL); Vista UDS pH Range 5
== END ==
PROVIDERS: Family Provider Internal Medicine; PCP Internal Medicine; Referring Provider Anesthesiology; Visit Provider Anesthesiology
DX: F11.20 Opioid dependence, uncomplicated (principal)
CPT/HCPCS: 80307

== ENCOUNTER → 2020-08-17 16:27 | Outpatient (CLI) | payer MEDICARE, SELFPAY ==
[2020-08-17 17:47] LABS: Amphetamine Urine VISTA NEGATIVE (<1000 ng/mL); Barbiturate Urine VISTA NEGATIVE (< 200 ng/mL); Benzodiazepine Urine VISTA POSITIVE (< 200 ng/mL); Cocaine Urine VISTA NEGATIVE (< 300 ng/mL); Ecstacy Urine VISTA NEGATIVE (< 500 ng/mL); Methadone Urine VISTA NEGATIVE (< 300 ng/mL); PCP Urine VISTA NEGATIVE (< 25 ng/mL); THC Urine VISTA POSITIVE (< 50 ng/mL); Vista UDS pH Range 6
== END ==
PROVIDERS: PCP Internal Medicine; Referring Provider Anesthesiology; Visit Provider Anesthesiology
DX: F11.20 Opioid dependence, uncomplicated (principal)
CPT/HCPCS: 80307

== ENCOUNTER → 2021-03-15 15:15 | Outpatient (CLI) | payer MEDICARE, SELFPAY ==
[2021-03-15 16:48] LABS: Amphetamine Urine VISTA NEGATIVE (<1000 ng/mL); Barbiturate Urine VISTA NEGATIVE (< 200 ng/mL); Benzodiazepine Urine VISTA POSITIVE (< 200 ng/mL); Cocaine Urine VISTA NEGATIVE (< 300 ng/mL); Ecstacy Urine VISTA NEGATIVE (< 500 ng/mL); Methadone Urine VISTA NEGATIVE (< 300 ng/mL); PCP Urine VISTA NEGATIVE (< 25 ng/mL); THC Urine VISTA POSITIVE (< 50 ng/mL); Vista UDS pH Range 5
== END ==
PROVIDERS: PCP Internal Medicine; Referring Provider Anesthesiology; Visit Provider Anesthesiology
DX: F11.20 Opioid dependence, uncomplicated (principal)
CPT/HCPCS: 80307

== ENCOUNTER 2021-12-12 14:58 | Outpatient (CLI) | payer MEDICARE, SELFPAY ==
[2021-12-12 15:50] LABS: Amphetamine Urine VISTA NEGATIVE (<1000 ng/mL); Barbiturate Urine VISTA NEGATIVE (< 200 ng/mL); Benzodiazepine Urine VISTA POSITIVE (< 200 ng/mL); Cocaine Urine VISTA NEGATIVE (< 300 ng/mL); Ecstacy Urine VISTA NEGATIVE (< 500 ng/mL); Methadone Urine VISTA NEGATIVE (< 300 ng/mL); PCP Urine VISTA NEGATIVE (< 25 ng/mL); THC Urine VISTA POSITIVE (< 50 ng/mL); Vista UDS pH Range 5
== END 2021-12-12 23:59 | disposition home or self-care (01) ==
PROVIDERS: Visit Provider Anesthesiology Pain Medicine
DX: F11.20 Opioid dependence, uncomplicated (principal)
CPT/HCPCS: 80307